=== PATIENT | female | born 2000 | race African-American/Black ===

== ENCOUNTER 2025-06-21 23:44 | Emergency (ER) | payer MEDICAID ==
[~2025-06-21] VITALS: Ht 167.6 cm; Wt 65.0 kg
[2025-06-21 23:52] VITALS: O2SAT 100
[2025-06-22 00:47] LABS: CLARITY URINE CLOUDY (CLEAR); COLOR URINE YELLOW (YELLOW); GLUCOSE URINE NEGATIVE (NEGATIVE); KETONES URINE NEGATIVE (NEGATIVE); LEUKOCYTE ESTERASE URINE NEGATIVE (NEGATIVE); NITRITE URINE NEGATIVE (NEGATIVE); OCCULT BLOOD URINE NEGATIVE (NEGATIVE); PH URINE 6.5 (4.5-8.0); PROTEIN URINE TRACE (NEGATIVE); SPECIFIC GRAVITY URINE 1.034 (1.005-1.030); UROBILINOGEN URINE 1.0 E.U./dL (0.2-1.0)
[2025-06-22 01:04] LABS: BASOPHILS % 0.6 % (0.0-2.0); EOSINOPHILS % 2.4 % (0.0-5.0); HEMATOCRIT. 37.0 % (36.0-48.0); HEMOGLOBIN. 12.2 g/dL (12.0-16.0); LYMPHOCYTES % 38.7 % (20.0-50.0); MEAN PLATELET VOLUME 9.7 fl (7.4-10.4); MONOCYTES % 7.8 % (2.0-8.0); NEUTROPHILS % 50.5 % (40.0-76.0); PLATELET 200 x1000/uL (130-400); RED BLOOD CELL COUNT 3.83 mill/uL (4.2-5.4); RED CELL DISTRIBUTION WIDTH 13.6 % (11.6-14.6)
[2025-06-22] MEDS: ACETAMINOPHEN 500MG TABLET PO ONE (01:07)
[2025-06-22 01:16] LABS: CREATININE 0.8 mg/dL (0.6-1.0)
[2025-06-22 01:17] LABS: PROTEIN TOTAL 7.2 g/dL (6.0-8.3); UREA NITROGEN BLOOD 10 mg/dL (9-23)
[2025-06-22 01:18] LABS: ASPARTATE AMINOTRANSFERASE 17 IU/L (<34)
[2025-06-22 01:19] LABS: BILIRUBIN DIRECT 0.1 mg/dL (<=3.0); BILIRUBIN TOTAL 0.3 mg/dL (0.1-1.0)
[2025-06-22 02:34] LABS: SQUAMOUS EPITHELIAL CELL URINE 3+ /lpf (RARE/1+)
[2025-06-22 02:36] LABS: RBC URINE 0-2 /hpf (0-2); WBC URINE 0-2 /hpf (0-2)
[2025-06-22 02:39] LABS: BACTERIA URINE 1+
[2025-06-22] MEDS ORDERED: TOPUD MT (04:42)
[2025-06-22 04:53] VITALS: BP 128/78; PULSE 90; RESP 16; TEMP 36.6; O2SAT 100
== END 2025-06-22 04:54 | disposition home or self-care (01) ==
LOC: ER 06-22 00:08
DX: O09.291 Supervision of pregnancy with other poor reproductive or obstetric history, first trimester (principal); M54.50 Low back pain, unspecified; R10.20 Pelvic and perineal pain unspecified side; Z3A.01 Less than 8 weeks gestation of pregnancy; Z87.440 Personal history of urinary (tract) infections
CPT/HCPCS: 36415; 76801; 80048; 80076; 81003; 81025; 82010; 84702; 85025; 99284